=== PATIENT | female | born 1940 | race Caucasian/White ===

== ENCOUNTER 2016-05-15 13:40 | Emergency (ER) | payer OTHER, MEDICARE ==
[~2016-05-15] VITALS: Ht 157.5 cm; Wt 86.4 kg
[~2016-05-15 13:40] MED LIST: ACETAMINOPHEN1 EAC4 PO; ALPRAZOLAM0.25 M2 PO; Advair 250/50 Diskus IH; Ambien PO; B COMPLEX1 EAC2 PO; BENADRYL25 MG PO; COUMADIN5 MG PO; Cymbalta PO; DAILY VALUE1 EACH PO; FOLIC ACID1 MG PO; FUROSEMIDE20 MG PO; Folvite PO; HYDROCHLOROTH12.5 MG PO; IBUPROFEN600 MG PO; IRON325 MG PO; KLOR-CON20 MEQ PO; LASIX20 MG PO; LEVO-T150 MCG PO; LEVOTHYROXINE300 MCG PO; Levaquin PO; PANTOPRAZOLE SO40 MG PO; PAROXETINE HCL20 MG PO; PROAIR HFA8.5 GM IH; Potassium Chloride 1 PO; Protonix PO; SPIRIVA1 INHALATI IH; TRAMADOL HCL50 MG PO; TYLENOL REGULA325 MG PO; Thiamine,Vitamin B1 PO; VENLAFAXINE HCL25 MG PO; VITAMIN D34000 UNIT PO; XANAX0.25 MG PO; XARELTO1 EACH PO; Xanax PO; predniSONE PO
[2016-05-15 14:48] LABS: HEMATOCRIT 44.2 % (36.0-46.0); MCH 28.9 PG (29.0-34.0); MCHC 32.4 G/DL (30.0-36.0); MCV 89.5 FL (83-99); MEAN PLAT.VOLUME 10.3 uM^3 (9.5-12.4); PLATELET COUNT 262 K/uL (156-360); RBC DIS.WIDTH-CV 15.9 % (11.8-14.6); RBC DIS.WIDTH-SD 51.9 % (39-53); RED BLOOD COUNT 4.94 M/uL (3.80-5.20); WHITE BLOOD COUNT 7.2 K/uL (4.1-10.2)
[2016-05-15 14:57] LABS: CHLORIDE 109 mEq/L (99-109); POTASSIUM 3.6 mEq/L (3.7-5.4); SODIUM 140 mEq/L (136-147)
[2016-05-15 14:59] LABS: GLUCOSE 105 mg/dL (70-99)
[2016-05-15 15:01] LABS: ANION GAP 10 MEQ/L (2-14)
[2016-05-15 15:03] LABS: GFR ESTIMATE (CALCULATED) 43 mL/min/
[2016-05-15 15:04] LABS: UREA NITROGEN (BUN) 16 mg/dL (9-23)
[2016-05-15 17:54] LABS: TOTAL BILIRUBIN 0.4 mg/dL (0.0-1.0)
[2016-05-15 17:55] LABS: ALKALINE PHOSPHATASE 110 IU/L (3-129)
[2016-05-15 17:58] LABS: DIRECT BILIRUBIN 0.2 mg/dL (0.0-0.3)
[2016-05-15 17:59] LABS: LIPASE 19 U/L (1.0-51.0)
[2016-05-15] MEDS ORDERED: ZOFRAN ODT4 MG PO ×2 (18:53→19:59)
[2016-05-15 19:17] LABS: ADD MIUA? YES; BILIRUBIN NEGATIVE; BLOOD SMALL; COLOR YELLOW ((YELLOW)); GLUCOSE (STRIP) NEGATIVE; KETONES NEGATIVE; LEUKOCYTES LARGE; NITRITE POSITIVE; PROTEIN (STRIP) 30; UROBILINOGEN 0.2 MG/DL (0.2-1.0)
[2016-05-15 19:26] LABS: SPECIFIC GRAVITY 1.058 (1.000-1.030)
[2016-05-15] MEDS ORDERED: CIPRO500 MG PO ×2 (19:39→19:59)
[2016-05-15 20:24] VITALS: BP 144/87
[2016-05-15 20:34] LABS: BACTERIA 1+ /HPF; CASTS NONE SEEN /LPF; CRYSTALS NONE SEEN; EPITHELIAL CELLS 1+ /HPF; MUCUS NONE SEEN /LPF; RED BLOOD CELLS 0-5 /HPF (0-5); UCUL ADDED? NO; WHITE BLOOD CELLS 20-30 /HPF (0-5)
== END 2016-05-15 20:25 | disposition home or self-care (01) ==
LOC: EME 13:40
PROVIDERS: Physician Assistant Medical
DX: R10.13 Epigastric pain (principal); N39.0 Urinary tract infection, site not specified; R19.7 Diarrhea, unspecified; R42 Dizziness and giddiness; J44.9 Chronic obstructive pulmonary disease, unspecified; E03.9 Hypothyroidism, unspecified; Z86.711 Personal history of pulmonary embolism; Z86.718 Personal history of other venous thrombosis and embolism; F17.200 Nicotine dependence, unspecified, uncomplicated
CPT/HCPCS: 74174; 80048; 80076; 81003; 83690; 85027; 86850; 86900; 86901; 99281; 99284

== ENCOUNTER 2016-09-01 15:45 | Inpatient (IN) | payer OTHER, MEDICARE ==
[~2016-09-01] VITALS: Ht 160 cm; Wt 95.2 kg
[~2016-09-01 15:45] MED LIST changes: +CIPRO500 MG PO; +ZOFRAN ODT4 MG PO
[2016-09-01 18:20] LABS: EOSINOPHIL (%) 0 % (0-5); HEMATOCRIT 32.9 % (36.0-46.0); IMMATURE GRANULOCYTE (%) 3.2 % (0.0-0.7); IMMATURE GRANULOCYTE COUNT 0.4 K/uL; LYMPHOCYTE COUNT 0.9 K/uL (1.0-2.8); MCH 30.8 PG (29.0-34.0); MCHC 34.3 G/DL (30.0-36.0); MCV 89.6 FL (83-99); MEAN PLAT.VOLUME 10.8 uM^3 (9.5-12.4); MONOCYTE (%) 4.6 % (3-12); MONOCYTE COUNT 0.6 K/uL (0-0.8); NEUTROPHIL (%) 84.9 % (45-76); PLATELET COUNT 190 K/uL (156-360); RBC DIS.WIDTH-CV 13.7 % (11.8-14.6); RED BLOOD COUNT 3.67 M/uL (3.80-5.20); WHITE BLOOD COUNT 12.9 K/uL (4.1-10.2)
[2016-09-01 18:25] LABS: ADD MIUA? YES; BILIRUBIN NEGATIVE; BLOOD SMALL; COLOR YELLOW ((YELLOW)); GLUCOSE (STRIP) NEGATIVE; KETONES NEGATIVE; LEUKOCYTES MODERATE; NITRITE NEGATIVE; PROTEIN (STRIP) 30; SPECIFIC GRAVITY 1.006 (1.000-1.030); UROBILINOGEN 0.2 MG/DL (0.2-1.0)
[2016-09-01 18:31] LABS: CHLORIDE 104 mEq/L (99-109)
[2016-09-01 18:31] LABS: BACTERIA RARE /HPF; EPITHELIAL CELLS RARE /HPF; MUCUS TRACE /LPF; RED BLOOD CELLS 0-5 /HPF (0-5); WHITE BLOOD CELLS 20-30 /HPF (0-5)
[2016-09-01 18:32] LABS: POTASSIUM 3.6 mEq/L (3.7-5.4); SODIUM 134 mEq/L (136-147)
[2016-09-01 18:33] LABS: GLUCOSE 146 mg/dL (70-99)
[2016-09-01 18:35] LABS: ANION GAP 15 MEQ/L (2-14)
[2016-09-01 18:37] LABS: GFR ESTIMATE (CALCULATED) 18 mL/min/
[2016-09-01 18:38] LABS: UREA NITROGEN (BUN) 44 mg/dL (9-23)
[2016-09-02 03:07] VITALS: BP 118/57
[2016-09-02 05:29] LABS: METH RESISTANT S AUREUS PCR NEGATIVE (NEGATIVE)
[2016-09-02 05:30] LABS: PROBE CHECK PASS; SPECIMEN PROCESSING CONTROL PASS
[2016-09-02 06:41] LABS: HEMATOCRIT 29.9 % (36.0-46.0); MCH 30.7 PG (29.0-34.0); MCHC 34.4 G/DL (30.0-36.0); MCV 89.3 FL (83-99); MEAN PLAT.VOLUME 10.8 uM^3 (9.5-12.4); NRBC (%) 0.2 /100 WBC (0-0); PLATELET COUNT 193 K/uL (156-360); RED BLOOD COUNT 3.35 M/uL (3.80-5.20); WHITE BLOOD COUNT 9.8 K/uL (4.1-10.2)
[2016-09-02 07:24] LABS: ANION GAP 14 MEQ/L (2-14); CHLORIDE 109 MEQ/L (99-109); GFR ESTIMATE (CALCULATED) 20 mL/min/; POTASSIUM 4.1 MEQ/L (3.7-5.4); SAMPLE HEMOLYSIS CHECK 0; SAMPLE ICTERIC CHECK 0; SAMPLE LIPEMIA CHECK 0; SODIUM 136 MEQ/L (136-147); UREA NITROGEN (BUN) 40 mg/dL (9-23)
[2016-09-02 07:29] LABS: GLUCOSE 87 mg/dL (70-99)
[2016-09-02 07:48] VITALS: BP 140/67
[2016-09-02 15:19] LABS: ANION GAP 11 MEQ/L (2-14); CHLORIDE 111 MEQ/L (99-109); POTASSIUM 4.1 MEQ/L (3.7-5.4); SAMPLE HEMOLYSIS CHECK 0; SAMPLE ICTERIC CHECK 0; SAMPLE LIPEMIA CHECK 0; SODIUM 139 MEQ/L (136-147)
[2016-09-02 15:24] LABS: GFR ESTIMATE (CALCULATED) 23 mL/min/; GLUCOSE 92 mg/dL (70-99); UREA NITROGEN (BUN) 36 mg/dL (9-23)
[2016-09-02 17:27] VITALS: BP 150/79
[2016-09-02 23:42] VITALS: BP 152/74
[2016-09-03 07:55] VITALS: BP 129/66
[2016-09-03 08:11] LABS: INTERNAL CONTROL VALID? YES
[2016-09-03] MEDS ORDERED: XANAX0.25 MG PO (09:23)
[2016-09-03] MEDS ORDERED: FEOSOL325 MG PO (09:23)
[2016-09-03] MEDS ORDERED: LASIX20 MG PO (09:26)
[2016-09-03] MEDS ORDERED: PROTONIX40 MG PO (09:26)
[2016-09-03] MEDS ORDERED: EFFEXOR XR75 MG PO (09:26)
[2016-09-03] MEDS ORDERED: PROAIR HFA8.5 GM IH (09:26)
[2016-09-03] MEDS ORDERED: FOLIC ACID1 MG PO (09:26)
[2016-09-03 09:27] LABS: HEMATOCRIT 29.8 % (36.0-46.0); MCH 31.6 PG (29.0-34.0); MCHC 34.9 G/DL (30.0-36.0); MCV 90.6 FL (83-99); MEAN PLAT.VOLUME 10.1 uM^3 (9.5-12.4); PLATELET COUNT 242 K/uL (156-360); RBC DIS.WIDTH-CV 14.6 % (11.8-14.6); RBC DIS.WIDTH-SD 48.3 % (39-53); RED BLOOD COUNT 3.29 M/uL (3.80-5.20)
[2016-09-03] MEDS ORDERED: KLOR-CON M2020 MEQ PO (09:27)
[2016-09-03] MEDS ORDERED: SYNTHROID175 MCG PO ×2 (09:27→09:28)
[2016-09-03] MEDS ORDERED: TRAMADOL HCL50 MG PO (09:28)
[2016-09-03 09:59] LABS: ANION GAP 7 MEQ/L (2-14); CHLORIDE 112 MEQ/L (99-109); GFR ESTIMATE (CALCULATED) 26 mL/min/; POTASSIUM 4.1 MEQ/L (3.7-5.4); SAMPLE HEMOLYSIS CHECK 0; SAMPLE ICTERIC CHECK 0; SAMPLE LIPEMIA CHECK 0; SODIUM 138 MEQ/L (136-147); UREA NITROGEN (BUN) 28 mg/dL (9-23)
[2016-09-03 10:00] LABS: GLUCOSE 155 mg/dL (70-99)
[2016-09-03 16:49] VITALS: BP 143/71
[2016-09-03 23:52] VITALS: BP 139/67
[2016-09-04 06:57] LABS: ANION GAP 9 MEQ/L (2-14); CHLORIDE 111 MEQ/L (99-109); GFR ESTIMATE (CALCULATED) 31 mL/min/; GLUCOSE 88 mg/dL (70-99); SAMPLE HEMOLYSIS CHECK 0; SAMPLE ICTERIC CHECK 0; SAMPLE LIPEMIA CHECK 0; SODIUM 140 MEQ/L (136-147); UREA NITROGEN (BUN) 22 mg/dL (9-23)
[2016-09-04 08:08] VITALS: BP 155/70
[2016-09-04 16:08] VITALS: BP 179/77
[2016-09-04 21:10] VITALS: BP 154/69
[2016-09-05 00:21] VITALS: BP 154/73
[2016-09-05 07:41] VITALS: BP 186/84
[2016-09-05 08:48] LABS: HEMATOCRIT 33.3 % (36.0-46.0); MCH 31.7 PG (29.0-34.0); MCHC 33.9 G/DL (30.0-36.0); MCV 93.3 FL (83-99); MEAN PLAT.VOLUME 10.3 uM^3 (9.5-12.4); PLATELET COUNT 320 K/uL (156-360); RBC DIS.WIDTH-CV 14.7 % (11.8-14.6); RBC DIS.WIDTH-SD 50.3 % (39-53); RED BLOOD COUNT 3.57 M/uL (3.80-5.20); WHITE BLOOD COUNT 7.9 K/uL (4.1-10.2)
[2016-09-05 08:58] LABS: ANION GAP 10 MEQ/L (2-14); CHLORIDE 108 MEQ/L (99-109); GFR ESTIMATE (CALCULATED) 36 mL/min/; GLUCOSE 104 mg/dL (70-99); POTASSIUM 4.1 MEQ/L (3.7-5.4); SAMPLE HEMOLYSIS CHECK 0; SAMPLE ICTERIC CHECK 0; SAMPLE LIPEMIA CHECK 0; SODIUM 139 MEQ/L (136-147); UREA NITROGEN (BUN) 16 mg/dL (9-23)
[2016-09-05 11:15] VITALS: BP 165/72
[2016-09-05 15:38] VITALS: BP 161/74
[2016-09-05 20:03] VITALS: BP 159/78
[2016-09-05 23:48] VITALS: BP 162/74
[2016-09-06 03:59] VITALS: BP 147/70
[2016-09-06 04:49] LABS: HEMATOCRIT 30.7 % (36.0-46.0); MCH 30.5 PG (29.0-34.0); MCHC 33.2 G/DL (30.0-36.0); MCV 91.9 FL (83-99); MEAN PLAT.VOLUME 10.1 uM^3 (9.5-12.4); PLATELET COUNT 331 K/uL (156-360); RBC DIS.WIDTH-CV 14.4 % (11.8-14.6); RBC DIS.WIDTH-SD 48.7 % (39-53); RED BLOOD COUNT 3.34 M/uL (3.80-5.20); WHITE BLOOD COUNT 8.6 K/uL (4.1-10.2)
[2016-09-06 05:09] LABS: CHLORIDE 111 mEq/L (99-109); SODIUM 140 mEq/L (136-147)
[2016-09-06 05:10] LABS: GLUCOSE 91 mg/dL (70-99)
[2016-09-06 05:12] LABS: ANION GAP 9 MEQ/L (2-14)
[2016-09-06 05:14] LABS: GFR ESTIMATE (CALCULATED) 39 mL/min/
[2016-09-06 05:15] LABS: UREA NITROGEN (BUN) 17 mg/dL (9-23)
[2016-09-06 08:21] VITALS: BP 163/72
[2016-09-06] MEDS ORDERED: NICOTINE PATCH1 EAC2 TD (10:36)
[2016-09-06] MEDS ORDERED: LEVOFLOXACIN750 MG PO (10:42)
[2016-09-06] MEDS ORDERED: SPIRIVA RESPIMAT4 GM IH (10:53)
[2016-09-06] MEDS ORDERED: ADVAIR HFA120 INHALA IH (10:54)
[2016-09-06] MEDS ORDERED: ONDANSETRON ODT4 MG PO (10:56)
[2016-09-06] MEDS ORDERED: MUCINEX600 MG PO (10:56)
== END 2016-09-06 15:01 | DRG 682 ==
LOC: EME 15:45 → 3EAST 23:32 → EDOF 23:32 → 3EAST 09-02 01:38
PROVIDERS: Hospitalist; Internal Medicine; Physician Assistant
DX: N17.9 Acute kidney failure, unspecified (principal); J18.9 Pneumonia, unspecified organism; I11.0 Hypertensive heart disease with heart failure; J44.0 Chronic obstructive pulmonary disease with (acute) lower respiratory infection; N39.0 Urinary tract infection, site not specified; I50.9 Heart failure, unspecified; D64.9 Anemia, unspecified; F33.0 Major depressive disorder, recurrent, mild; J98.11 Atelectasis; E86.1 Hypovolemia; M25.561 Pain in right knee; E03.9 Hypothyroidism, unspecified; Z86.718 Personal history of other venous thrombosis and embolism; Z79.01 Long term (current) use of anticoagulants; Z95.828 Presence of other vascular implants and grafts; Z86.711 Personal history of pulmonary embolism; Z86.14 Personal history of Methicillin resistant Staphylococcus aureus infection; K21.9 Gastro-esophageal reflux disease without esophagitis; Z96.643 Presence of artificial hip joint, bilateral; F17.210 Nicotine dependence, cigarettes, uncomplicated; E78.5 Hyperlipidemia, unspecified; E86.0 Dehydration; J20.9 Acute bronchitis, unspecified; W18.30XA Fall on same level, unspecified, initial encounter; Z98.84 Bariatric surgery status; M25.551 Pain in right hip; M25.40 Effusion, unspecified joint; M79.606 Pain in leg, unspecified; R19.7 Diarrhea, unspecified; R26.2 Difficulty in walking, not elsewhere classified
CPT/HCPCS: 71020; 71250; 73502; 73564; 76770; 80048; 80048 91; 80069; 81003; 83605; 84439; 84443; 85025; 85027; 87040; 87086; 87449; 87641; 93005; 94640; 94640 76; 99202; 99281; 99285; J0456; J0692; J1644; J7030; J7050; J7120

== ENCOUNTER 2017-04-30 12:34 | Emergency (ER) | payer OTHER, MEDICARE ==
[~2017-04-30] VITALS: Ht 157.5 cm; Wt 84.8 kg
[~2017-04-30 12:34] MED LIST changes: +ADVAIR HFA120 INHALA IH; +EFFEXOR XR75 MG PO; +FEOSOL325 MG PO; +KLOR-CON M2020 MEQ PO; +LEVOFLOXACIN750 MG PO; +MUCINEX600 MG PO; +NICOTINE PATCH1 EAC2 TD; +ONDANSETRON ODT4 MG PO; +PROTONIX40 MG PO; +SPIRIVA RESPIMAT4 GM IH; +SYNTHROID175 MCG PO
[2017-04-30 13:29] LABS: BASOPHIL (%) 0.2 % (0-1); EOSINOPHIL (%) 0 % (0-5); HEMATOCRIT 38.4 % (36.0-46.0); HEMOGLOBIN 12.7 G/DL (11.9-15.5); IMMATURE GRANULOCYTE (%) 0.6 % (0.0-0.7); LYMPHOCYTE (%) 12.7 % (15-42); LYMPHOCYTE COUNT 0.7 K/uL (1.0-2.8); MCH 31.8 PG (29.0-34.0); MCHC 33.1 G/DL (30.0-36.0); MONOCYTE (%) 10.3 % (3-12); MONOCYTE COUNT 0.5 K/uL (0-0.8); NEUTROPHIL (%) 76.2 % (45-76); NEUTROPHIL COUNT 3.9 K/uL (1.8-6.4); PLATELET COUNT 143 K/uL (156-360); RBC DIS.WIDTH-CV 13.2 % (11.8-14.6); RBC DIS.WIDTH-SD 47.1 % (39-53); WHITE BLOOD COUNT 5.1 K/uL (4.1-10.2)
[2017-04-30 13:36] LABS: CARBON DIOXIDE (BICARBONATE) 21.6 MEQ/L (20-31)
[2017-04-30 13:41] LABS: CHLORIDE 106 mEq/L (99-109); POTASSIUM 3.6 mEq/L (3.7-5.4); SODIUM 140 mEq/L (136-147)
[2017-04-30 13:43] LABS: GLUCOSE 106 mg/dL (70-99)
[2017-04-30 13:47] LABS: CREATININE 1.3 mg/dL (0.6-1.3); GFR ESTIMATE (CALCULATED) 43 mL/min/
[2017-04-30 13:48] LABS: UREA NITROGEN (BUN) 32 mg/dL (9-23)
[2017-04-30 13:53] LABS: TROP-I INTERPRETATION NEGATIVE; TROPONIN-I 0.01 ng/mL (0.0-0.30)
[2017-04-30] MEDS ORDERED: PROVENTIL,2.5 MG/3 M IH (17:02)
[2017-04-30 17:32] VITALS: BP 145/70
== END 2017-04-30 18:01 | disposition home or self-care (01) ==
LOC: EME 12:34
PROVIDERS: Emergency Medicine
DX: J44.1 Chronic obstructive pulmonary disease with (acute) exacerbation (principal); I50.9 Heart failure, unspecified; E03.9 Hypothyroidism, unspecified; K21.9 Gastro-esophageal reflux disease without esophagitis; F41.9 Anxiety disorder, unspecified; F32.9 Major depressive disorder, single episode, unspecified; F17.200 Nicotine dependence, unspecified, uncomplicated; Z86.718 Personal history of other venous thrombosis and embolism; Z90.49 Acquired absence of other specified parts of digestive tract; Z98.84 Bariatric surgery status; Z96.643 Presence of artificial hip joint, bilateral; Z88.8 Allergy status to other drugs, medicaments and biological substances; Z91.09 Other allergy status, other than to drugs and biological substances
CPT/HCPCS: 71046; 80048; 81003; 82803; 83605; 84484; 85025; 87502; 93005; 99281; 99284; J7644